=== PATIENT | male | born 1980 | race African-American/Black ===

== ENCOUNTER 2016-10-17 18:34 | Emergency (ER) | payer OTHER ==
[~2016-10-17] VITALS: Ht 172.7 cm; Wt 68.0 kg
[~2016-10-17 18:34] MED LIST: Z.0.UNABLE TO OBTAIN
[2016-10-17 18:36] VITALS: BP 123/58; PULSE 92; RESP 16; TEMP 98.3; O2SAT 97
[2016-10-17] MEDS ORDERED: PALI1.75 IM (18:53)
[2016-10-17] MEDS ORDERED: [UNRECOGNIZED DRUG - REMARK] (18:53)
[2016-10-17] MEDS ORDERED: MIRT1TAB PO (18:53)
--- NOTE | 2016-10-17 19:16 | PD ---
HPI Chief Complaint: Lump, Cyst, Hernia Time Seen by Provider: 19:13 Travel History International Travel<30 days: No Contact w/Intl Traveler<30days: No Traveled to known affect area: No History of Present Illness HPI 36-year-old black male presents emergency Department with complains of a lump to the back of his head which she feels is been there for at least a month. His mother states that she noticed it this week and felt it was larger than usual. He presents for evaluation. He denies any fever chills. No pain. No drainage. He does note that he had a shorter haircut this last time. He also notes a little sore on his lip which she was seen at the [facility] one month ago and was given medicine for cold sores. [facility] Past Medical History Narrative Medical Schizophrenia, PTSD, insomnia, HSV Arthritis: Yes (PAIN IN JOINTS) Anxiety: Yes Depression: Yes Diabetes: No Diminished Hearing: No Musculoskeletal: Yes (TARSAL TUNNEL SYNDROME) Psychiatric: Yes (SCHIZOPHRENIA AND PTSD) Respiratory: Yes (ALLERGIC RHINITIS) Immunizations Current: Yes Schizophrenia: Yes Tetanus Vaccination: < 5 Years Past Surgical History Other Surgery: Yes (4 WISDOM TEETH EXTRACTED) Social History Alcohol Use: Yes (OCC.) Tobacco Use: No Substance Use: Yes (MARIJUANA) Allergies-Medications (Allergen,Severity, Reaction): Coded Allergies: No Known Allergies (Verified , 10/17/16) Reported Meds & Prescriptions Reported Meds & Active Scripts Active Reported [Other Med For Lip?] Mirtazapine 7.5 Mg Tab 7.5 Mg PO HS Invega Trinza Inj (Paliperidone Palmitate) 819 Mg/2.625 Ml Inj 819 Mg IM Q90D Review of Systems Except as stated in HPI: all other systems reviewed are Neg Physical Exam Narrative GENERAL: Well-developed, well-nourished in no apparent distress. Nontoxic appearing. HEAD: Normocephalic, atraumatic. Patient has a 2 x 2 centimeter mobile soft tissue lesion to the posterior occiput consistent with a lipoma. There is no erythema, warmth, fluctuance or pointing. EYES: Pupils equal round and reactive. Extraocular motions intact. No scleral icterus. No injection or drainage. ENT: Nose clear. Throat without erythema, tonsillar hypertrophy or exudate. Uvula midline. Airway patent. Patient also has a small herpetic ulceration on the upper left lip. NECK: Trachea midline. Supple, nontender, moves head freely. No central bony tenderness or spasm. CARDIOVASCULAR: Regular rate and rhythm without murmurs, gallops, or rubs. RESPIRATORY: Clear to auscultation. Breath sounds equal bilaterally. No wheezes , rales, or rhonchi. GASTROINTESTINAL: Abdomen soft, non-tender, nondistended. No hepato-splenomegaly , or palpable masses. No guarding. EXTREMITIES: No clubbing, cyanosis, or edema. No joint tenderness. BACK: Nontender without deformity. No flank tenderness. NEUROLOGICAL: Awake, alert and oriented x 3 .Cranial nerves grossly intact. Motor and sensory grossly within normal limits. Normal speech. Data Data Last Documented VS Vital Signs Date Time Temp Pulse Resp B/P Pulse Ox O2 Delivery O2 Flow Rate FiO2 10/17/16 18:36 98.3 92 16 123/58 97 Room Air MDM Medical Decision Making Medical Screen Exam Complete: Yes Emergency Medical Condition: Yes Medical Record Reviewed: Yes Differential Diagnosis MDM: High Differential diagnoses: Abscess, folliculitis, cellulitis, lymphangitis, abrasion, contact dermatitis, lipoma, HSV Narrative Course This is a lipoma Diagnosis Primary Impression: Lipoma Qualified Code: D17.0 - Lipoma of head Patient Instructions: General Instructions Additional Instructions: Rest. [facility] Return to the ER for emergencies. Disposition: 01 DISCHARGE HOME Condition: Stable Jj Villarreal Oct 17, 2016 19:16
== END 2016-10-17 19:39 | disposition home or self-care (01) ==
LOC: NEPB 18:34
DX: D17.0 Benign lipomatous neoplasm of skin and subcutaneous tissue of head, face and neck (principal)
CPT/HCPCS: 99282